=== PATIENT | female | born 1970 | race African-American/Black ===

== ENCOUNTER 2018-04-28 09:08 | Emergency (ER) | payer OTHER | END 2018-04-28 09:38 | disposition home or self-care (01) | LOC: ERS 09:08 | DX: L30.9 Dermatitis, unspecified (principal) | CPT/HCPCS: 99282 ==

== ENCOUNTER 2020-06-18 13:02 | Emergency (ER) | payer OTHER | END 2020-06-18 13:37 | disposition home or self-care (01) | LOC: ERS 13:02 | DX: K12.0 Recurrent oral aphthae (principal); F31.9 Bipolar disorder, unspecified; Z79.899 Other long term (current) drug therapy | CPT/HCPCS: 99282 ==

== ENCOUNTER 2021-11-07 13:43 | Emergency (ER) | payer OTHER ==
[2021-11-07 14:08] LABS: #Eosinphils 0.3 thou/uL (0.0-0.7); #Lymphocytes 1.5 thou/uL (1.20-3.40); #Monocytes 0.6 thou/uL (0.11-0.59); #Neutrophils 8.5 thou/uL (1.40-6.50); %Basophils 0.3 % (0.0-1.0); %Eosinophils 2.9 % (0.0-10.0); %Lymphocytes 13.3 % (21.0-51.0); %Monocytes 5.3 % (0.0-10.0); %Neutrophils 78.2 % (42.0-75.0); Hemoglobin 13.7 g/dL (12.0-16.0); Mean Corpuscular HGB CONC 32.9 g/dL (32.0-36.0); Mean Corpuscular Hemoglobin 28.3 pg (27.0-31.0); Mean Corpuscular Volume 85.9 fL (78.0-98.0); Mean Platelet Volume 6.7 fL (7.4-10.4); Platelet Count 364 thou/uL (130-400); RBC Distribution Width 12.1 % (11.5-14.5); Red Blood Cell (RBC) Count 4.84 mill/uL (4.20-5.40); White Blood Cell (WBC) Count 10.9 thou/uL (4.8-10.8)
[2021-11-07 14:27] LABS: ALT (SGPT) 21 U/L (8-55); AST (SGOT) 20 U/L (5-34); Albumin 3.9 g/dL (3.5-5.0); Alkaline Phosphatase 54 U/L (40-110); Anion Gap 12 mmol/L (10-20); BUN (Urea Nitrogen) 9 mg/dL (9.8-20.1); Bilirubin, Total 0.3 mg/dL (0.2-1.2); Calc. Creatinine Clearance 0 mL/min (70-130); Calcium 9.3 mg/dL (7.8-10.44); Carbon Dioxide 28 mmol/L (22-29); Chloride 102 mmol/L (98-107); Globulin 3.3 g/dL (2.4-3.5); Glucose 83 mg/dL (70-105); Potassium 3.9 mmol/L (3.5-5.1); Protein, Total 7.2 g/dL (6.0-8.3); Sodium 138 mmol/L (136-145)
[2021-11-07] MEDS ORDERED: Ondansetron PF 4 MG/2 ML Vial ONE (16:01)
[2021-11-07] MEDS ORDERED: Ketorolac Tromethamine 30 MG/ML VIAL ONE (16:01)
[2021-11-07] MEDS ORDERED: Morphine 4 MG/ML VIAL ONE (16:01)
[2021-11-07 16:36] LABS: Lipase 26 U/L (8-78); Magnesium 2.1 mg/dL (1.6-2.6)
[2021-11-07] MEDS ORDERED: Dexamethasone 10 MG/ML VIAL ONE (18:00)
== END 2021-11-07 17:46 | disposition home or self-care (01) ==
LOC: ERS 13:43
DX: R07.89 Other chest pain (principal); R05.9 Cough, unspecified; Z20.822 Contact with and (suspected) exposure to COVID-19; F17.200 Nicotine dependence, unspecified, uncomplicated
CPT/HCPCS: 36415; 71045; 80053; 83690; 83735; 83880; 84484; 85025; 85379; 93005; 96374; 96375; J1100; J1885; J2270; J2405

== ENCOUNTER 2023-09-16 14:50 | Emergency (ER) | payer OTHER ==
[2023-09-16 15:32] LABS: #Eosinphils 0.3 thou/uL (0.0-0.7); #Monocytes 0.6 thou/uL (0.11-0.59); #Neutrophils 4.5 thou/uL (1.40-6.50); %Basophils 0.6 % (0.0-1.0); %Eosinophils 4.3 % (0.0-10.0); %Lymphocytes 24.9 % (21.0-51.0); %Monocytes 8.1 % (0.0-10.0); Hematocrit 41.2 % (36.0-47.0); Hemoglobin 13.9 g/dL (12.0-16.0); Mean Corpuscular HGB CONC 33.7 g/dL (32.0-36.0); Mean Corpuscular Volume 82.9 fl (78.0-98.0); Mean Platelet Volume 8.9 fL (7.4-10.4); Platelet Count 454 10x3/uL (130-400); RBC Distribution Width 13.5 % (11.5-14.5); Red Blood Cell (RBC) Count 4.97 mill/uL (4.20-5.40); White Blood Cell (WBC) Count 7.2 10x3/uL (4.8-10.8)
[2023-09-16] MEDS ORDERED: Ondansetron PF 4 MG/2 ML Vial ONE ×3 (16:00→20:21)
[2023-09-16] MEDS ORDERED: Morphine 4 MG/ML VIAL ONE (16:00)
[2023-09-16] MEDS ORDERED: Mag-Al 1200 mg/1200 mg/30 ML UDCUP ONE (16:01)
[2023-09-16] MEDS ORDERED: Pantoprazole 40 MG VIAL ONE (16:01)
[2023-09-16 16:03] LABS: Troponin I Less than 0.010 ng/mL (< 0.028)
[2023-09-16 16:10] LABS: ALT (SGPT) 24 U/L (8-55); AST (SGOT) 27 U/L (5-34); Albumin 4.6 g/dL (3.5-5.0); Alkaline Phosphatase 59 U/L (40-110); Anion Gap 16 mmol/L (10-20); BUN (Urea Nitrogen) 16 mg/dL (9.8-20.1); Bilirubin, Total 0.3 mg/dL (0.2-1.2); Calc. Creatinine Clearance 0 mL/min (70-130); Calcium 9.2 mg/dL (7.8-10.44); Carbon Dioxide 22 mmol/L (22-29); Chloride 104 mmol/L (98-107); Estimated GFR 78; Globulin 3.2 g/dL (2.4-3.5); Glucose 98 mg/dL (70-105); Potassium 3.6 mmol/L (3.5-5.1); Protein, Total 7.8 g/dL (6.0-8.3); Sodium 138 mmol/L (136-145)
[2023-09-16] MEDS ORDERED: Lidocaine 2% Viscous Solution 10 ML, Aluminum & Magnesium Hydroxide 30 ML SSW SCH (16:15)
[2023-09-16 16:19] LABS: Lipase 38 U/L (8-78)
[2023-09-16] MEDS ORDERED: Ketorolac Tromethamine 30 MG/ML VIAL ONE (17:23)
[2023-09-16] MEDS ORDERED: LevoFLOXacin 500 mg/D5W 100 ML BAG ONE (17:24)
[2023-09-16] MEDS ORDERED: EPINEPHrine 1 MG/ML AMP ONE (17:38)
[2023-09-16] MEDS ORDERED: Bupivacaine PF 0.5% 30 ML VIAL ONE (17:38)
[2023-09-16] MEDS ORDERED: fentaNYL PF 100 MCG/2 ML SYRINGE ONE ×2 (18:08→19:36)
[2023-09-16] MEDS ORDERED: fentaNYL 50 mcg/mL 1 mL Vial ONE (18:08)
[2023-09-16] MEDS ORDERED: Rocuronium Bromide 10 MG/ML (10ML VIAL) ONE (18:37)
[2023-09-16] MEDS ORDERED: Dexamethasone 20 MG/5 ML VIAL ONE (18:37)
[2023-09-16] MEDS ORDERED: Lidocaine 1% PF 5 ML VIAL ONE (18:37)
[2023-09-16] MEDS ORDERED: PROPOFOL 200 MG/20 ML VIAL ONE (18:37)
[2023-09-16] MEDS ORDERED: HYDROcodone/Acetaminophen 5/325 mg Tablet ONE (20:29)
== END 2023-09-16 18:12 | disposition admitted as inpatient to this hospital (09) ==
LOC: ERS 14:50
DX: K81.9 Cholecystitis, unspecified (principal); F17.210 Nicotine dependence, cigarettes, uncomplicated
CPT/HCPCS: 71045; 74177; 76705; 80053; 83690; 84484; 85025; 85379; 88304; 93005; 96365; 96375; C9113; J0171; J1100; J1885; J1956; J2270; J2405; J2704; J3010; S0020

== ENCOUNTER 2023-12-25 07:47 | Emergency (ER) | payer OTHER ==
[2023-12-25 09:10] LABS: #Eosinphils 0.2 thou/uL (0.0-0.7); #Monocytes 0.6 thou/uL (0.11-0.59); #Neutrophils 2.5 thou/uL (1.40-6.50); %Basophils 0.4 % (0.0-1.0); %Eosinophils 4.2 % (0.0-10.0); %Lymphocytes 31.2 % (21.0-51.0); %Monocytes 12.2 % (0.0-10.0); %Neutrophils 51.8 % (42.0-75.0); Hematocrit 40.1 % (36.0-47.0); Hemoglobin 13.2 g/dL (12.0-16.0); Mean Corpuscular HGB CONC 32.9 g/dL (32.0-36.0); Mean Corpuscular Hemoglobin 27.9 pg (27.0-31.0); Mean Corpuscular Volume 84.8 fl (78.0-98.0); Mean Platelet Volume 9.3 fL (7.4-10.4); Platelet Count 355 10x3/uL (130-400); RBC Distribution Width 13.8 % (11.5-14.5); Red Blood Cell (RBC) Count 4.73 mill/uL (4.20-5.40); White Blood Cell (WBC) Count 4.7 10x3/uL (4.8-10.8)
[2023-12-25 09:36] LABS: ALT (SGPT) 19 U/L (8-55); AST (SGOT) 18 U/L (5-34); Albumin 4.1 g/dL (3.5-5.0); Alkaline Phosphatase 50 U/L (40-110); Anion Gap 10 mmol/L (10-20); BUN (Urea Nitrogen) 10 mg/dL (9.8-20.1); Bilirubin, Total 0.3 mg/dL (0.2-1.2); Calc. Creatinine Clearance 0 mL/min (70-130); Calcium 9.1 mg/dL (7.8-10.44); Carbon Dioxide 27 mmol/L (22-29); Chloride 108 mmol/L (98-107); Estimated GFR 91; Globulin 3.1 g/dL (2.4-3.5); Glucose 66 mg/dL (70-105); Lipase 52 U/L (8-78); Protein, Total 7.2 g/dL (6.0-8.3); Sodium 141 mmol/L (136-145)
[2023-12-25] MEDS ORDERED: Iopamidol-370 76% 500 ML MDV (1 ML CHARGE) ONE (11:09)
== END 2023-12-25 10:57 | disposition home or self-care (01) ==
LOC: ERS 07:47
DX: K29.70 Gastritis, unspecified, without bleeding (principal)
CPT/HCPCS: 36415; 74177; 80053; 83690; 85025; Q9967